=== PATIENT | female | born 1980 | race Two or more races ===

== ENCOUNTER 2024-11-17 03:06 | Inpatient (IN) | payer MEDICAID, OTHER ==
[~2024-11-17] VITALS: Ht 175.3 cm; Wt 96.6 kg
[2024-11-17] VITALS (8 sets, daily range): BP systolic 96–110; BP diastolic 46–54; PULSE 58–102; RESP 12–20; TEMP 97.4–98; O2SAT 95–100
--- NOTE | 2024-11-17 03:33 | ED.PDOC ---
History of Present Illness HPI Comments 44 Year old female came to the emergency room due to abdominal pain. Patient underwent Exploratory laparotomy with colostomy bag secondary to diverticulitis at [facility] last August 2024. Earlier today noted that her colostomy bag appears to be leaking blood, was unattached and kept falling off. Patient went to [facility] however they told her that they could not help her and she has to go to another hospital for help. Chief Complaint: Abdominal Pain Time Seen by MD: 03:33 Reviewed Notes: Nurses Notes Allergies: Coded Allergies: Acetaminophen (Verified Allergy, Unknown, 11/17/24) Hydrocodone (Verified Allergy, Unknown, 11/17/24) Metronidazole (Verified Allergy, Unknown, 11/17/24) Morphine (Verified Allergy, Unknown, 11/17/24) Tramadol (Verified Allergy, Unknown, 11/17/24) Information Source: Patient Mode of Arrival: Ambulatory Severity: Moderate Timing: Hours Duration: Since onset Past Medical History Surgical History (Other): Exploratory laparotomy with colostomy bag secondary to diverticulitis AD WRITER History: Denies all AD WRITER Hx Family History Family History: Reviewed,noncontributory to illness Social History Smoker: Non-Smoker Alcohol: Denies ETOH Use Drugs: Denies Drug Use Lives In: Home Constitutional: denies: chills, diaphoresis, fatigue, fever, malaise, sweats, weakness, others EENTM: denies: blurred vision, double vision, ear bleeding, ear discharge, ear drainage, ear pain, ear ringing, eye pain, eye redness, hearing loss, mouth pain, mouth swelling, nasal discharge, nose bleeding, nose congestion, nose pain, photophobia, tearing, throat pain, throat swelling, voice changes, others Respiratory: denies: cough, hemoptysis, orthopnea, SOB at rest, shortness of breath, SOB with excertion, stridor, wheezing, others Cardiovascular: denies: chest pain, dizzy spells, diaphoresis, Dyspnea on exertion, edema, irregular heart beat, left arm pain, lightheadedness, palpitations, PND, syncope, others Gastrointestinal: denies: abdomen distended, abdominal pain, blood streaked bowels, constipated, diarrhea, dysphagia, difficulty swallowing, hematemesis, melena, nausea, poor appetite, poor fluid intake, rectal bleeding, rectal pain, vomiting, others Genitourinary: denies: abnormal vagina bleeding, burning, dyspareunia, dysuria, flank pain, frequency, hematuria, incontinence, pain, , vagina discharge, urgency, others Neurological: denies: dizziness, fainting, headache, left sided numbness, left sided weakness, numbness, paresthesia, pre-existing deficit, right sided numbness, right sided weakness, seizure, speech problems, tingling, tremors, weakness, others Musculoskeletal: denies: back pain, gout, joint pain, joint swelling, muscle pain, muscle stiffness, neck pain, others Integumetry: reports: wounds (Colostomy bag); denies: bruises, change in color, change in hair/nails, dryness, laceration, lesions, lumps, rash, others Allergic/Immunocompromised: denies: Difficulty Healing, Frequent Infections, Hives, Itching, others Hematologic/Lymphatic: denies: anemia, blood clots, easy bleeding, easy bruising, swollen glands, others Endocrine: denies: excessive hunger, excessive sweating, excessive thirst, excessive urination, flushing, intolerance to cold, intolerance to heat, unexplained weight gain, unexplained weight loss, others Psychiatric: denies: anxiety, bipolar disorder, depression, hopeless, panic disorder, schizophrenia, sleepless, suicidal, others Physical Exam General Appearance: No Apparent Distress, Normal HEENT: Normal ENT Inspection, Pharynx Normal, TMs Normal Neck: Full Range of Motion, Non-Tender, Normal, Normal Inspection Respiratory: Chest Non-Tender, Lungs Clear, No Accessory Muscle Use, No Respiratory Distress, Normal Breath Sounds Cardiovascular: No Edema, No JVD, No Murmur, No Gallop, Normal Peripheral Pulses, Regular Rate/Rhythm Breast Exam: Deferred Gastrointestinal: No Organomegaly, Non Tender, No Pulsatile Mass, Normal Bowel Sounds, Soft, Other (Colostomy bag) Genitalia: Deferred Pelvic: Deferred Rectal: Deferred Extremities: No calf tenderness, Normal capillary refill, Normal inspection, Normal range of motion, Non-tender, No pedal edema Musculoskeletal : Apperance: Normal Neurologic: Alert, molder sweep II-XII nml as Tested, No Motor Deficits, Normal Affect, Normal Mood, No Sensory Deficits Cerebellar Function: Normal Reflexes: Normal Skin: Dry, Normal Color, Warm Lymphatic: No Adenopathy Was a procedure done? Was a procedure done?: No Differential Dx Considerations may include: Wound check, status post exploratory laparotomy X-Ray, Labs, Meds, VS Vital Signs Date Time Temp Pulse Resp B/P (MAP) Pulse Ox O2 Delivery O2 Flow Rate FiO2 11/17/24 04:22 102 20 95 Room Air* 0 21 11/17/24 04:22 97.8 2 20 101/71 (81) 95 97.8 11/17/24 03:30 97.6 112 20 118/89 (99) 97 Lab Test 11/17/24 03:35 Range/Units White Blood Count 10.3 4.4-10.8 10^3/uL Red Blood Count 4.85 4.0-5.20 10^6/uL Hemoglobin 12.8 12.2-16.2 g/dL Hematocrit 38.9 36.0-46.0 % Mean Corpuscular Volume 80.2 80.0-100.0 fL Mean Corpuscular Hemoglobin 26.4 L 28.0-32.0 pg Mean Corpuscular Hemoglobin Concent 32.9 32.0-36.0 g/dL Red Cell Distribution Width 20.2 H 11.8-14.3 % Platelet Count 346 140-450 10^3/uL Mean Platelet Volume 8.0 6.9-10.8 fL Neutrophils (%) (Auto) 54.6 37.0-80.0 % Lymphocytes (%) (Auto) 34.9 10.0-50.0 % Monocytes (%) (Auto) 7.6 0.0-12.0 % Eosinophils (%) (Auto) 2.0 0.0-7.0 % Basophils (%) (Auto) 0.9 0.0-2.0 % Neutrophils # (Auto) 5.6 1.6-8.6 10 ^3/uL Lymphocytes # (Auto) 3.6 0.4-5.4 10 ^3/uL Monocytes # (Auto) 0.8 0-1.3 10 ^3/uL Eosinophils # (Auto) 0.2 0-0.8 10 ^3/uL Basophils # (Auto) 0.1 0-0.2 10 ^3/uL Nucleated Red Blood Cells 0.0 % Sodium Level 141 136-145 mmol/L Potassium Level 3.4 L 3.5-5.1 mmol/L Chloride Level 107 98-107 mmol/L Carbon Dioxide Level 24 20-31 mmol/L Anion Gap 10 5-15 Blood Urea Nitrogen 8 L 9-23 mg/dL Creatinine 0.79 0.550-1.02 mg/dL Glomerular Filtration Rate Calc 93 >90 mL/min BUN/Creatinine Ratio 10.1 10.0-20.0 Serum Glucose 108 H 74-106 mg/dL Lactic Acid Level 2.0 0.4-2.0 mmol/L Calcium Level 10.3 8.7-10.4 mg/dL Total Bilirubin 0.3 0.2-1.0 mg/dL Aspartate Amino Transferase (AST) 36 13-40 U/L Alanine Aminotransferase (ALT) 40 7-40 U/L Alkaline Phosphatase 81 46-116 U/L Total Protein 7.6 5.7-8.2 g/dL Albumin 4.4 3.2-4.8 g/dL Lipase 34 12-53 U/L Current Medications Medications (Trade) Dose Ordered Sig/Leticia Route Start Time Stop Time Status Last Admin Sodium Chloride 1,000 ml @ 1,000 mls/hr Q1H ONCE IV 11/17/24 03:30 11/17/24 04:29 DC 11/17/24 04:20 Ondansetron HCl (Zofran) 4 mg ONCE ONCE IV 11/17/24 03:30 11/17/24 03:31 DC 11/17/24 04:20 Famotidine (Pepcid Injection) 20 mg ONCE ONCE IV 11/17/24 03:30 11/17/24 03:31 DC 11/17/24 04:19 Ketorolac Tromethamine (Toradol Injection) 15 mg ONCE ONCE IV 11/17/24 04:00 11/17/24 04:01 DC 11/17/24 04:20 Time of 1ST Reevaluation: 03:27 Reevaluation 1ST: Unchanged Patient Education/Counseling: Diagnosis, Treatment Family Education/Counseling: No Family Present Departure 1 Departure Time of Disposition: 05:35 (Patient presented with abdominal pain that was concerning for possible appendicits, gastritis, cholecystitis, colitis, gastroenteritis, sbo, or orther possible surgical emergency. Data: 1. I ordered and reviewed the result of at least 3 labs including a CBC, BMP, and Urinalysis. 2. I independently interpreted the following tests: CT Abdoment and Pelvis is concerning for ostomy but otherwise benign.Risk:This patient has a high risk of morbidity due to further diagnostic testing or treatment and may suffer from an acute abdominal process disorder. Workup reveals intractable abdominal pain and ostomy without good care and patient should be admitted for further workup. and possible expert consultation. ) Impression: Primary Impression: Deficient knowledge of ostomy care Additional Impression: Intractable abdominal pain Disposition: ADMITTED INPATIENT Admit to: Med Surg Condition: Serious Critical Care Note Critical Care Time?: Yes Critical care comment: Intractable abdominal pain Authorized and Performed by: Asiya Sharp MD Total critical care time: Approximately 36 minutes Due to a high probability of clinically significant, life threatening deterioration, the patient required my highest level of preparedness to intervene emergently and I personally spent this critical care time directly and personally managing the patient. This critical care time included obtaining a history; examining the patient; pulse oximetry; ordering and review of studies; arranging urgent treatment with development of a management plan; evaluation of patient's response to treatment; frequent reassessment; and, discussions with other providers. This critical care time was performed to assess and manage the high probability of imminent, life-threatening deterioration that could result in multi-organ failure. It was exclusive of separately billable procedures and treating other patients and teaching time. Please see my other sections and the rest of the note for further information on patient assessment and treatment. Stability Stability form required: No Heart Score Heart Score: Heart Score Response (Comments) Value History N/A 0 EKG N/A 0 Age N/A 0 Risk Factors N/A 0 Troponin N/A 0 Total 0 I personally scribed for ASIYA SHARP MD ([email or web address]) on 11/17/24 at 03:33. Electronically submitted by Salty Macias ([email or web address]). ASIYA SHARP MD Nov 17, 2024 03:33
[2024-11-17 03:49] LABS: Basophils # (auto) 0.1 10 ^3/uL (0-0.2); Basophils % (auto) 0.9 % (0.0-2.0); Eosinophils # (auto) 0.2 10 ^3/uL (0-0.8); Hematocrit 38.9 % (36.0-46.0); Hemoglobin 12.8 g/dL (12.2-16.2); Lymphocytes # (auto) 3.6 10 ^3/uL (0.4-5.4); Lymphocytes % (auto) 34.9 % (10.0-50.0); Mean Corpuscular Hemoglobin 26.4 pg (28.0-32.0); Mean Corpuscular Hgb Conc. 32.9 g/dL (32.0-36.0); Mean Corpuscular Volume 80.2 fL (80.0-100.0); Monocytes # (auto) 0.8 10 ^3/uL (0-1.3); Monocytes % (auto) 7.6 % (0.0-12.0); Neutrophils # (auto) 5.6 10 ^3/uL (1.6-8.6); Neutrophils % (auto) 54.6 % (37.0-80.0); Platelet Count (auto) 346 10^3/uL (140-450); Red Blood Cells 4.85 10^6/uL (4.0-5.20); Red Cell Distribution Width 20.2 % (11.8-14.3); White Blood Cell 10.3 10^3/uL (4.4-10.8)
[2024-11-17 04:10] LABS: Alanine Aminotransferase 40 U/L (7-40); Albumin 4.4 g/dL (3.2-4.8); Alkaline Phosphatase 81 U/L (46-116); Anion Gap 10 (5-15); Aspartate Aminotransferase 36 U/L (13-40); BUN/Creatinine Ratio 10.1 (10.0-20.0); Bilirubin, Total 0.3 mg/dL (0.2-1.0); Calcium 10.3 mg/dL (8.7-10.4); Carbon Dioxide 24 mmol/L (20-31); Chloride 107 mmol/L (98-107); Lipase 34 U/L (12-53); Sodium 141 mmol/L (136-145); Total Protein 7.6 g/dL (5.7-8.2)
[2024-11-17 04:11] LABS: Blood Urea Nitrogen 8 mg/dL (9-23); Glucose 108 mg/dL (74-106); Potassium 3.4 mmol/L (3.5-5.1)
[2024-11-17] MEDS: FAMOTIDINE (10MG/ML) 2ML VL IV ONE (04:19)
[2024-11-17] MEDS: SODIUM CHLORIDE 0.9% 1,000 ML IV ONE (04:20)
[2024-11-17] MEDS: KETOROLAC TROMETH 30 MG/ML 1ML VIAL IV ONE ×2 (04:20→18:04)
[2024-11-17] MEDS: ONDANSETRON HCL 4 MG/2 ML VIAL IV ONE (04:20)
--- NOTE | 2024-11-17 05:27 | DVH ---
Exam: CT CT AB PEL WITH IV CON ONLY History: abdominal pain, hx of colostomy Comparison Study: None available at time of dictation. Contrast: 100 cc Omnipaque 300 TECHNIQUE: A digital cardiovascular technologist image was obtained. During the uneventful, intravenous administration of c ontrast material, multislice data acquisition was obtained through the abdomen and pelvis. The data s et was subsequently reconstructed into axial images. Images were reviewed on a work station using a c ombination of axial and multiplanar using a variety of window levels and settings. All CT scans at this medical facility are performed using dose modulation techniques as appropriate t o a performed exam including the following: Automated exposure control was utilized; adjustment of th e MA and/or KV according to patient size; and use of iterative reconstruction technique. Radiation Dose Information: CT Dose: CTDI volume is 24.1 mGy. Dose-length product is 1423.9 mGy*cm FINDINGS: Imaged portions of the lung bases appear unremarkable. There is diffuse hepatic steatosis. The gallbladder, spleen, pancreas and adrenal glands appear unre markable. There is a small hiatal hernia. Kidneys enhance symmetrically without focal mass. 0.6 cm n onobstructing right lower pole renal calculi. No hydronephrosis. There is a right lower quadrant ostomy with 3.8 cm bowel containing peristomal hernia. No evidence of obstruction. No significant free fluid. No suspicious osseous lesion. IMPRESSION: 1. Right lower quadrant ostomy with bowel containing peristomal hernia without evidence of obstructio n. 2. Hepatic steatosis
[2024-11-17] MEDS: IOHEXOL 300 MG/ML 100ML BOTTLE IJ ONE (05:33)
[2024-11-17] MEDS: fentaNYL CITRATE 100 MCG/2 ML VL IV ONE (05:42)
[2024-11-17] MEDS ORDERED: ONDANSETRON HCL 4 MG/2 ML VIAL IV PRN (08:45)
[2024-11-17] MEDS ORDERED: VANCOMYCIN PER PHARMACY 0 MG IV SCH (08:45)
[2024-11-17] MEDS ORDERED: ACETAMINOPHEN 325 MG TAB PO PRN (08:45)
[2024-11-17] MEDS ORDERED: LEVO100T8 PO (08:52)
--- NOTE | 2024-11-17 08:53 | DVHHP2 ---
History of Present Illness Reason for Visit: Abdominal pain History of Present Illness Ebonie Rose is a 44-year-old female with past medical history of asthma, anxiety, thyroidectomy, hypothyroidism, diverticulitis, and ex lap with colostomy secondary to diverticulitis at [place] on September 12, 2024 who presents to the ED with right lower quadrant erythema, nausea, vomiting and abdominal pain x2 days. Patient reports pain localized to the right lower quadrant. She reports that she went to [place] for evaluation they told her that they could not do anything for her. Patient denies any chest pain, shortness of breath, recent injury or falls, fever, chills, lightheadedness, dizziness, weakness, and headache. GI: Other (Diverticulitis) Psych: Anxiety Endocrine: Hypothyroidism Past Surgical History: Other (Thyroidectomy and ex lap with colostomy) Family History: DM, Hyperlipidemia, Hypertension, Other (Mom with diabetes, hyperlipidemia, and hypertension and dad with history of heart attack, hyperlipidemia, hypertension now ) Smoke: No ALCOHOL: none Drugs: None Lives: with Family Domestic Violence: Neg Review of Systems Constitutional: No: Fever, Chills, Sweats, Weakness, Malaise, Other Eyes: No: Pain, Vision change, Conjunctivae inflammation, Eyelid inflammation, Other, Redness ENT: No: Ear pain, Ear discharge, Nose pain, Nose discharge, Nose congestion, Mouth pain, Mouth swelling, Throat pain, Throat swelling, Other Respiratory: No: Cough, Dry, Shortness of breath, SOB with excertion, Wheezing, Hemoptysis, Pleuritic Pain, Sputum, Wheezing, Other Cardiovascular: No: Chest Pain, Palpitations, Orthopnea, Paroxysmal Noc. Dyspnea, Edema, Lt Headedness, Other Gastrointestinal: Nausea, Vomiting, Abdominal Pain; No: Diarrhea, Constipation, Melena, Hematochezia, Other Genitourinary: No Dysuria, No Frequency, No Incontinence, No Hematuria, No Retention, No Other Musculoskeletal: No: other, neck pain, shoulder pain, arm pain, back pain, hand pain, leg pain, foot pain Skin: Other (Erythema around the ostomy site); No: Rash, Lesions, Jaundice, Bruising Neurological: No: Weakness, Numbness, Incoordination, Change in speech, Confusion, Seizures, Other Allergies: Coded Allergies: Acetaminophen (Verified Allergy, Intermediate, Hives, 11/17/24) Hydrocodone (Verified Allergy, Intermediate, Hives, 11/17/24) Metronidazole (Verified Allergy, Unknown, 11/17/24) Morphine (Verified Allergy, Unknown, 11/17/24) Tramadol (Verified Allergy, Unknown, 11/17/24) Medications Current Medications Medications Dose Ordered Sig/Leticia Route Start Time Stop Time Status Last Admin Dose Admin Vancomycin HCl 0 ml @ 0 mls/hr UD IV 11/17/24 08:45 UNV Piperacillin Sod/ Tazobactam Sod 100 ml @ 25 mls/hr Q8HR IV 11/17/24 14:00 UNV Acetaminophen/ Hydrocodone Bitart 1 tab Q4HP PRN PO 11/17/24 08:45 UNV Ondansetron HCl 4 mg Q4HP PRN IV 11/17/24 08:45 UNV Acetaminophen 650 mg Q6HP PRN PO 11/17/24 08:45 UNV Exam Vital Signs Vital Signs Date Time Temp Pulse Resp B/P (MAP) Pulse Ox O2 Delivery O2 Flow Rate FiO2 11/17/24 08:06 66 15 96 Room Air* 0 21 11/17/24 08:05 98.0 113/56 (75) 98.0 General Appearance: Alert, Oriented X3, Cooperative, No acute distress HEENT: Atraumatic, PERRLA, EOMI, Mucous membr. moist/pink Respiratory: Clear to auscultation, Normal air movement Cardiovascular: Regular rate, Normal S1, Normal S2, No murmurs Abdominal: Soft Extremities: No clubbing, No cyanosis, No edema, Normal pulses, No tenderness/swelling Neuro: Normal gait, Normal speech, Strength at 5/5 X4 ext, Normal tone Psych/Mental Status: Mental status NL, Mood NL Labs/Xrays Labs Test 11/17/24 03:35 Range/Units White Blood Count 10.3 4.4-10.8 10^3/uL Red Blood Count 4.85 4.0-5.20 10^6/uL Hemoglobin 12.8 12.2-16.2 g/dL Hematocrit 38.9 36.0-46.0 % Mean Corpuscular Volume 80.2 80.0-100.0 fL Mean Corpuscular Hemoglobin 26.4 L 28.0-32.0 pg Mean Corpuscular Hemoglobin Concent 32.9 32.0-36.0 g/dL Red Cell Distribution Width 20.2 H 11.8-14.3 % Platelet Count 346 140-450 10^3/uL Mean Platelet Volume 8.0 6.9-10.8 fL Neutrophils (%) (Auto) 54.6 37.0-80.0 % Lymphocytes (%) (Auto) 34.9 10.0-50.0 % Monocytes (%) (Auto) 7.6 0.0-12.0 % Eosinophils (%) (Auto) 2.0 0.0-7.0 % Basophils (%) (Auto) 0.9 0.0-2.0 % Neutrophils # (Auto) 5.6 1.6-8.6 10 ^3/uL Lymphocytes # (Auto) 3.6 0.4-5.4 10 ^3/uL Monocytes # (Auto) 0.8 0-1.3 10 ^3/uL Eosinophils # (Auto) 0.2 0-0.8 10 ^3/uL Basophils # (Auto) 0.1 0-0.2 10 ^3/uL Nucleated Red Blood Cells 0.0 % Sodium Level 141 136-145 mmol/L Potassium Level 3.4 L 3.5-5.1 mmol/L Chloride Level 107 98-107 mmol/L Carbon Dioxide Level 24 20-31 mmol/L Anion Gap 10 5-15 Blood Urea Nitrogen 8 L 9-23 mg/dL Creatinine 0.79 0.550-1.02 mg/dL Glomerular Filtration Rate Calc 93 >90 mL/min BUN/Creatinine Ratio 10.1 10.0-20.0 Serum Glucose 108 H 74-106 mg/dL Lactic Acid Level 2.0 0.4-2.0 mmol/L Calcium Level 10.3 8.7-10.4 mg/dL Total Bilirubin 0.3 0.2-1.0 mg/dL Aspartate Amino Transferase (AST) 36 13-40 U/L Alanine Aminotransferase (ALT) 40 7-40 U/L Alkaline Phosphatase 81 46-116 U/L Total Protein 7.6 5.7-8.2 g/dL Albumin 4.4 3.2-4.8 g/dL Lipase 34 12-53 U/L Exam: CT CT AB PEL WITH IV CON ONLY History: abdominal pain, hx of colostomy Comparison Study: None available at time of dictation. Contrast: 100 cc Omnipaque 300 TECHNIQUE: A digital field scout image was obtained. During the uneventful, intravenous administration of contrast material, multislice data acquisition was obtained through the abdomen and pelvis. The data set was subsequently reconstructed into axial images. Images were reviewed on a work station using a combination of axial and multiplanar using a variety of window levels and settings. All CT scans at this medical facility are performed using dose modulation techniques as appropriate to a performed exam including the following: Automated exposure control was utilized; adjustment of the MA and/or KV according to patient size; and use of iterative reconstruction technique. Radiation Dose Information: CT Dose: CTDI volume is 24.1 mGy. Dose-length product is 1423.9 mGy*cm FINDINGS: Imaged portions of the lung bases appear unremarkable. There is diffuse hepatic steatosis. The gallbladder, spleen, pancreas and adrenal glands appear unremarkable. There is a small hiatal hernia. Kidneys enhance symmetrically without focal mass. 0.6 cm nonobstructing right lower pole renal calculi. No hydronephrosis. There is a right lower quadrant ostomy with 3.8 cm bowel containing peristomal hernia. No evidence of obstruction. No significant free fluid. No suspicious osseous lesion. IMPRESSION: 1. Right lower quadrant ostomy with bowel containing peristomal hernia without evidence of obstruction. 2. Hepatic steatosis Assessment/Plan Assessment/Plan Assessment/Plan: Intractable abdominal pain Labs PPI Antiemetics NS 1 L given ED Diet Lactic acid Lipase A.m. labs Wound culture Pain management UA IV antibiotics-vancomycin + Zosyn Hypokalemia Replete lytes Chronic asthma P.r.n. 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 Procedure Category Date Status Time Potassium Er Tablet PHA 11/17/24 Logged (Klor-Con Tablet) 08:30 Magnesium LAB 11/17/24 Logged 08:45 Vancomycin Per PHA 11/17/24 Logged Pharmacy 08:45 Piperacillin-Tazob PHA 11/17/24 Logged 3.375gm (Zosyn 3.375g 14:00 Piperacillin-Tazob PHA 11/17/24 Logged 3.375gm (Zosyn 3.375g 08:45 Admit ADMIT 11/17/24 Transmitted 08:45 Allergies SAMUEL 11/17/24 In Process 08:45 Code Status CODE 11/17/24 Transmitted 08:45 Hydrocodone-Acet PHA 11/17/24 Logged 5/325mg Tab ([place] 08:45 Ondansetron Hcl PHA 11/17/24 Logged (Zofran) 08:45 Complete Blood Count LAB 11/18/24 Verified 04:00 Comprehensive LAB 11/18/24 Verified Metabolic Panel 04:00 Acetaminophen Tablet PHA 11/17/24 Logged (Tylenol Tablet) 08:45 Wound Culture W/ Gs ROBERT 11/17/24 Logged 08:45 Date of Service: Nov 17, 2024 Billing Provider: VIRA POTTS Common Visit Codes: 11846-QGPSOSB INP/OBS CARE (HIGH) VIRA POTTS Nov 17, 2024 08:53
[2024-11-17] MEDS: HYDROcodone-ACET 5/325MG TAB PO PRN (09:27)
[2024-11-17] MEDS: PIPERACILLIN-TAZOB 3.375GM 100 ML IV ONE (09:28)
[2024-11-17] MEDS: POTASSIUM CHL 20 Meq TABLET PO ONE (09:28)
[2024-11-17] MEDS: VANCOMYCIN 1GM/250ML KIT 250 ML IV SCH (10:22)
[2024-11-17] MEDS: HYDROmorphone HCL 2 MG/ML VL/or syr IV ONE (14:50)
[2024-11-17] MEDS: PIPERACILLIN-TAZOB 3.375GM 100 ML IV SCH (14:51)
[2024-11-17] MEDS ORDERED: IPRATROPIUM BROM 0.5 MG/2.5ML INH SOL NEB PRN (15:15)
[2024-11-17] MEDS ORDERED: ALBUTEROL SULF 2.5 MG/0.5ML(0.5%) NEB SOLN NEB PRN (15:15)
[2024-11-17] MEDS: VANCOMYCIN 1.25GM/250ML 250 ML IV SCH (21:18)
[2024-11-18 01:00] VITALS: BP 98/54; PULSE 74; RESP 20; TEMP 98; O2SAT 99
[2024-11-18] MEDS: KETOROLAC TROMETH 30 MG/ML 1ML VIAL IV ONE (02:56)
[2024-11-18 05:00] VITALS: BP 119/86; PULSE 75; RESP 16; TEMP 97.5; O2SAT 97
[2024-11-18] MEDS: MAALOX PLUS or MAALOX 30 ML PO ONE (06:05)
[2024-11-18] MEDS: LIDOCAINE VISCOUS 2% 15ML UD MT ONE (06:05)
[2024-11-18 06:10] LABS: Basophils # (auto) 0.1 10 ^3/uL (0-0.2); Eosinophils # (auto) 0.3 10 ^3/uL (0-0.8); Hemoglobin 11.9 g/dL (12.2-16.2); Lymphocytes # (auto) 2.2 10 ^3/uL (0.4-5.4); Mean Corpuscular Volume 80.2 fL (80.0-100.0); Monocytes # (auto) 0.6 10 ^3/uL (0-1.3); Neutrophils # (auto) 4.1 10 ^3/uL (1.6-8.6); White Blood Cell 7.3 10^3/uL (4.4-10.8)
[2024-11-18 06:16] LABS: Basophils % (auto) 1.3 % (0.0-2.0); Eosinophils % (auto) 3.8 % (0.0-7.0); Hematocrit 36.3 % (36.0-46.0); Lymphocytes % (auto) 30.4 % (10.0-50.0); Mean Corpuscular Hemoglobin 26.3 pg (28.0-32.0); Mean Corpuscular Hgb Conc. 32.9 g/dL (32.0-36.0); Monocytes % (auto) 7.9 % (0.0-12.0); Neutrophils % (auto) 56.6 % (37.0-80.0); Nucleated Red Blood Cells % 0.1 %; Platelet Count (auto) 301 10^3/uL (140-450); Red Blood Cells 4.53 10^6/uL (4.0-5.20); Red Cell Distribution Width 20.2 % (11.8-14.3)
[2024-11-18 06:25] LABS: Alanine Aminotransferase 35 U/L (7-40); Albumin 4.1 g/dL (3.2-4.8); Alkaline Phosphatase 74 U/L (46-116); Anion Gap 10 (5-15); Aspartate Aminotransferase 28 U/L (13-40); BUN/Creatinine Ratio 8.6 (10.0-20.0); Bilirubin, Total 0.3 mg/dL (0.2-1.0); Blood Urea Nitrogen 7 mg/dL (9-23); Calcium 9.7 mg/dL (8.7-10.4); Carbon Dioxide 23 mmol/L (20-31); Chloride 107 mmol/L (98-107); Glucose 102 mg/dL (74-106); Potassium 3.4 mmol/L (3.5-5.1); Sodium 140 mmol/L (136-145); Total Protein 6.9 g/dL (5.7-8.2)
[2024-11-18 09:00] VITALS: BP 122/50; PULSE 66; TEMP 97.6; O2SAT 98
[2024-11-18 10:21] VITALS: BP 119/59; PULSE 77; RESP 16; TEMP 97.8; O2SAT 98
[2024-11-18] MEDS: PANTOPRAZOLE 40 MG/10 ML VIAL INJ IV SCH (10:23)
[2024-11-18] MEDS ORDERED: HYDROcodone-ACET 10/325MG TAB PO PRN (12:30)
--- NOTE | 2024-11-18 20:21 | DVHDS2 ---
Discharge Summary Date of Admission Nov 17, 2024 at 08:45 Date of Discharge: Nov 18, 2024 Admitting Diagnosis Asthma Anxiety Hypothyroidism History of thyroidectomy Diverticulitis status post ex lap with colostomy secondary to diverticulitis Colostomy leaking and cellulitis around the bag Labs/Diagnostic Data: Laboratory Results Test 11/18/24 05:48 11/17/24 03:35 White Blood Count 7.3 10^3/uL (4.4-10.8) Red Blood Count 4.53 10^6/uL (4.0-5.20) Hemoglobin 11.9 g/dL (12.2-16.2) Hematocrit 36.3 % (36.0-46.0) Mean Corpuscular Volume 80.2 fL (80.0-100.0) Mean Corpuscular Hemoglobin 26.3 pg (28.0-32.0) Mean Corpuscular Hemoglobin Concent 32.9 g/dL (32.0-36.0) Red Cell Distribution Width 20.2 % (11.8-14.3) Platelet Count 301 10^3/uL (140-450) Mean Platelet Volume 8.2 fL (6.9-10.8) Neutrophils (%) (Auto) 56.6 % (37.0-80.0) Lymphocytes (%) (Auto) 30.4 % (10.0-50.0) Monocytes (%) (Auto) 7.9 % (0.0-12.0) Eosinophils (%) (Auto) 3.8 % (0.0-7.0) Basophils (%) (Auto) 1.3 % (0.0-2.0) Neutrophils # (Auto) 4.1 10 ^3/uL (1.6-8.6) Lymphocytes # (Auto) 2.2 10 ^3/uL (0.4-5.4) Monocytes # (Auto) 0.6 10 ^3/uL (0-1.3) Eosinophils # (Auto) 0.3 10 ^3/uL (0-0.8) Basophils # (Auto) 0.1 10 ^3/uL (0-0.2) Nucleated Red Blood Cells 0.1 % Sodium Level 140 mmol/L (136-145) Potassium Level 3.4 mmol/L (3.5-5.1) Chloride Level 107 mmol/L (98-107) Carbon Dioxide Level 23 mmol/L (20-31) Anion Gap 10 (5-15) Blood Urea Nitrogen 7 mg/dL (9-23) Creatinine 0.81 mg/dL (0.550-1.02) Glomerular Filtration Rate Calc 91 mL/min (>90) BUN/Creatinine Ratio 8.6 (10.0-20.0) Serum Glucose 102 mg/dL (74-106) Calcium Level 9.7 mg/dL (8.7-10.4) Total Bilirubin 0.3 mg/dL (0.2-1.0) Aspartate Amino Transferase (AST) 28 U/L (13-40) Alanine Aminotransferase (ALT) 35 U/L (7-40) Alkaline Phosphatase 74 U/L (46-116) Total Protein 6.9 g/dL (5.7-8.2) Albumin 4.1 g/dL (3.2-4.8) Lactic Acid Level 2.0 mmol/L (0.4-2.0) Magnesium Level 1.8 mg/dL (1.6-2.6) Lipase 34 U/L (12-53) Other Laboratory Tests 11/18/24 05:48 Brief Hx & Hospital Course: This is a 44 years old female with past medical history of anxiety, asthma, diverticulitis status post colostomy come to [facility] because of severe pain around her colostomy tube. Apparently the surgery was done in [place]. The patient started having leakage of the fluid around the colostomy and come to [facility]. The patient then come to [facility] for further evaluation. The patient was admitted. The patient was put on IV antibiotic. Wound care was consulted for reattached colostomy bag. However the patient grew inpatient and left against medical advice. The patient verbally understands without fixing her colostomy tube is continuing to have issue with cellulitis and leakage in pain so around the colostomy bag per she still left against medical advice. Physical exam: HEENT: Normocephalic atraumatic pupils equal react to light and accommodation. Extraocular muscles intact, conjunctiva pink, oropharynx moist, no thrush, no exudate. Lymphatic: No lymphadenopathy Cardiovascular exam: S1, S2 was heard. No murmurs, rubs, gallops Lung: Clear on auscultation bilaterally, no wheeze, rale, rhonchi. GI: Abdominal soft, nondistended, nontenderness, positive bowel sounds. Extremity: No crepitus, cyanosis, edema. Pedal pulses present bilateral. Full range of motion. Skin: Normal turgor, no rash. Psych: Alert, oriented x3. Neurology: No focal deficits, cranial nerve II to XII grossly intact. This medical document was created using an electronic medical record system with [employer] direct computerized dictation system. Although this document has been carefully reviewed, there may still be some phonetic and typographical errors. These areas are purely typographical due to imperfections of the software programs, and do not reflect any compromise in the patient's medical care. Condition at Discharge: Guarded Final Diagnosis/Problems List Asthma Anxiety Hypothyroidism History of thyroidectomy Diverticulitis status post ex lap with colostomy secondary to diverticulitis Colostomy leaking and cellulitis around the bag Discharge Disposition: AMA Discharge Statement: "Patient was advised to return to the ER or call 911 if any headaches, dizziness, shortness of breath, chest pain, abdominal pain, bleeding, fevers, or worsening of medical condition. Patient was counseled about treatment plan, medications, possible side effects, patientverbalized understanding. All questions were answered to the best of my ability. This discharge took greater then 30 minutes in planning, reviewing documentation, counseling the patient, and discussing with other team members." ASSESSMENT ASSESSMENT Assessment Date of Service: Nov 18, 2024 Billing Provider: RACHELLE HUNTER MD Common Visit Codes: 41402-OPC/OBS DISCH DAY >30min RACHELLE HUNTER MD Nov 18, 2024 20:21
== END 2024-11-18 13:19 | disposition left against medical advice (07) | DRG 244 ==
LOC: ER 03:06 → OVERFLOW 08:45
DX: K57.92 Diverticulitis of intestine, part unspecified, without perforation or abscess without bleeding (principal); L03.311 Cellulitis of abdominal wall; K76.0 Fatty (change of) liver, not elsewhere classified; E03.9 Hypothyroidism, unspecified; E87.6 Hypokalemia; I10 Essential (primary) hypertension; J45.909 Unspecified asthma, uncomplicated; F41.9 Anxiety disorder, unspecified; Z53.29 Procedure and treatment not carried out because of patient's decision for other reasons; Z88.5 Allergy status to narcotic agent; Z88.3 Allergy status to other anti-infective agents; Z88.6 Allergy status to analgesic agent; Z93.3 Colostomy status; Z82.49 Family history of ischemic heart disease and other diseases of the circulatory system; Z83.3 Family history of diabetes mellitus
CPT/HCPCS: 36415; 74177; 80053; 83605; 83690; 83735; 85025; 99291; G0378; J1885; J2405; J2470; J2543; J3490